=== PATIENT | female | born 1980 | race Hispanic/Latino ===

== ENCOUNTER 2017-08-01 18:56 | Emergency (ER) | payer OTHER ==
[2017-08-01 19:09] VITALS: PULSE 75; RESP 18; TEMP 99.1; O2SAT 100
--- NOTE | 2017-08-01 19:31 | ED PDOC ---
Upper Extremity Pain/Injury Time Seen by Provider: 08/01/17 19:10 Chief Complaint (Nursing): Upper Extremity Problem/Injury Chief Complaint (Provider): hand laceration History Per: Patient Additional Complaint(s): Juany Jauregui is a 36 year old , right hand dominant female presents to the emergency department with left hand laceration sustained when she was cutting an avocado with knife and accidentally cut her hand. She applied pressure dressing and came right to ED. No numbness or tingling to affected. Tetanus up to date. PMD: Matthew Novoa MD Past Medical History Reviewed: Historical Data, Nursing Documentation, Vital Signs Vital Signs: Last Vital Signs Temp 99.1 F 08/01/17 19:06 Pulse 75 08/01/17 19:06 Resp 18 08/01/17 19:06 BP 120/94 H 08/01/17 19:06 Pulse Ox 100 08/01/17 19:06 - Medical History PMH: No Chronic Diseases - Surgical History Surgical History: (x 1) - Family History Family History: States: No Known Family Hx - Living Arrangements Living Arrangements: With Family - Social History Current smoker - smoking cessation education provided: No Alcohol: None Drugs: Denies - Immunization History Hx Tetanus Toxoid Vaccination: Yes - Allergies Allergies/Adverse Reactions: Allergies Allergy/AdvReac Type Severity Reaction Status Date / Time No Known Allergies Allergy Verified 08/01/17 19:06 Review of Systems ROS Statement: Except As Marked, All Systems Reviewed And Found Negative Constitutional: Negative for: Fever, Chills Musculoskeletal: Positive for: Hand Pain (left hand laceration ) Physical Exam - Reviewed Nursing Documentation Reviewed: Yes Vital Signs Reviewed: Yes - Physical Exam Appears: Positive for: Well, Non-toxic, No Acute Distress Skin: Positive for: Normal Color. Negative for: Pallor Extremity: Positive for: Normal ROM (of all digits of left hand), Tenderness ( left hand), Other (1 cm superficial laceration noted to palm of left hand, no active bleeding, (+) exposure of subq tissue, N/V intact) Neurologic/Psych: Positive for: Alert, Oriented - ECG O2 Sat by Pulse Oximetry: 100 (RA) Pulse Ox Interpretation: Normal Medical Decision Making Medical Decision Making: Initial Impression: Left hand laceration Initial Plan: * Wound repair See procedure note. Patient was given wound care instructions. Scribe Attestation: Documented by Tri Williamson, acting as a scribe for Maria C López PA-C. Provider Scribe Attestation: All medical record entries made by the Scribe were at my direction and personally dictated by me. I have reviewed the chart and agree that the record accurately reflects my personal performance of the history, physical exam, medical decision making, and the department course for this patient. I have also personally directed, reviewed, and agree with the discharge instructions and disposition. Procedures - Laceration/Wound Repair Left hand laceration Wound Length (cm): 1 Wound's Depth, Shape: superficial Wound Explored: clean Betadine Prep?: Yes Anesthesia: 1% Lidocaine Volume Anesthetic (ccs): 5 Wound Debrided: minimal Wound Repaired With: Sutures Suture Size/Type: 5:0, nylon Number of Sutures: 2 Layer Closure?: No Wound Complexity: Simple Sterile Dressing Applied?: Yes Splint Applied?: Yes Disposition - Clinical Impression Clinical Impression: Hand laceration - Patient ED Disposition Is Patient to be Admitted: No Counseled Patient/Family Regarding: Diagnosis, Need For Followup - Disposition Referrals: Matthew Novoa MD [Staff Provider] - Disposition: Routine/Home Disposition Time: 20:11 Condition: STABLE Additional Instructions: Keep wound clean and dry. Wash daily with soap and water. Apply Neosporin once per day. Keep uncovered for several hours per day. Recheck 2-3 days. Suture removal 10 days. Instructions: Care For Your Stitches (ED), Laceration (ED) Forms: [facility] (Azeri)
[2017-08-01] MEDS ORDERED: Lidocaine 1% Inj (20ml) IJ STA (19:42)
[2017-08-01] MEDS ORDERED: Lidocaine 1% Inj (20ml) ONE (19:47)
[2017-08-01 20:31] VITALS: BP 118/77
== END 2017-08-01 20:30 | disposition home or self-care (01) ==
LOC: H.ER 18:56
DX: S61.412A Laceration without foreign body of left hand, initial encounter (principal); W26.0XXA Contact with knife, initial encounter; Y92.000 Kitchen of unspecified non-institutional (private) residence as the place of occurrence of the external cause